=== PATIENT | female | born 1935 | race Caucasian/White ===

== ENCOUNTER 2016-05-09 10:50 | Outpatient (CLI) | payer MEDICARE, BC | END 2016-05-09 10:51 | disposition home or self-care (01) | DRG 554 | LOC: CONVCARE 10:50 | PROVIDERS: ATTEND Orthopaedic Surgery | DX: M17.11 Unilateral primary osteoarthritis, right knee (principal) | CPT/HCPCS: 73564 ==

== ENCOUNTER 2016-05-16 05:28 | Inpatient (IN) | payer MEDICARE, BC ==
[2016-05-16] MEDS ORDERED: LACTATED RINGERS 1,000 ML IV ONE (06:00)
[2016-05-16] MEDS ORDERED: LACTATED RINGERS 1,000 ML IV SCH (07:00)
[2016-05-16] MEDS ORDERED: CEFAZOLIN SODIUM 1 GM PDS ONE (07:16)
[2016-05-16] MEDS ORDERED: TRANEXAMIC ACID 100 MG/ML SOL ONE (07:17)
[2016-05-16] MEDS ORDERED: SODIUM CHLORIDE 20 ML 40 ML ONE (07:17)
[2016-05-16] MEDS ORDERED: MIDAZOLAM 2 MG/2 ML SOL ONE (07:24)
[2016-05-16] MEDS ORDERED: HYDROMORPHONE HCL 2 MG/ML 1 ML SOL ONE (07:24)
[2016-05-16] MEDS ORDERED: KETAMINE HYDROCHLORIDE 50 MG/ML SOL ONE (07:29)
[2016-05-16] MEDS: SCOPOLAMINE 1.5MG PATCH TD SCH (07:36)
[2016-05-16] MEDS ORDERED: PROPOFOL 500 MG/50 ML EMU IV ONE (08:04)
[2016-05-16] MEDS ORDERED: METOCLOPRAMIDE HYDROCHLORIDE 5 MG/ML SOL ONE (08:05)
[2016-05-16] MEDS ORDERED: DEXAMETHASONE 20 MG/5 ML (4 MG/ML SOL) ONE (08:05)
[2016-05-16] MEDS ORDERED: ONDANSETRON HCL 4 MG/2 ML SOL ONE (08:05)
[2016-05-16] MEDS ORDERED: SODIUM CHLORIDE IV ONE (08:12)
[2016-05-16] MEDS ORDERED: FLUSH IV ONE (08:12)
[2016-05-16] MEDS: BUPIVACAINE LIPOSOME 20 ML SUS ONE ×2 (09:06→09:30)
[2016-05-16] MEDS ORDERED: SODIUM CHLORIDE 0.9% FLUSH 10 ML SOL IV ONE ×2 (09:06→09:30)
[2016-05-16] MEDS ORDERED: ONDANSETRON 4 MG ODT BU PRN (09:42)
[2016-05-16] MEDS ORDERED: DIAZEPAM 5 MG TAB PO PRN (09:42)
[2016-05-16] MEDS ORDERED: FLEET ENEMA PR PRN (09:42)
[2016-05-16] MEDS ORDERED: TEMAZEPAM 15MG 15 MG CAP PO PRN (09:42)
[2016-05-16] MEDS ORDERED: ONDANSETRON HCL 4 MG/2 ML SOL IV PRN (09:42)
[2016-05-16] MEDS ORDERED: BISACODYL 10 MG SUP PR PRN (09:42)
[2016-05-16] MEDS ORDERED: HYDROMORPHONE HCL 2 MG/ML 1 ML SOL IV PRN (09:42)
[2016-05-16] MEDS ORDERED: MAGNESIUM HYDROXIDE 30 ML SUS PO PRN (09:42)
[2016-05-16] MEDS ORDERED: DIPHENHYDRAMINE 50 MG/ML SOL IV PRN (09:42)
[2016-05-16] MEDS ORDERED: MORPHINE SULFATE 10 MG/ML SOL IM PRN (09:42)
[2016-05-16] MEDS ORDERED: ALUMINUM/MAGNESIUM 30 ML SUS PO PRN (09:42)
[2016-05-16] MEDS ORDERED: SODIUM CHLORIDE 0.9% 500 ML 500 ML IV PRN (09:42)
[2016-05-16] MEDS ORDERED: SODIUM CHLORIDE 0.9% FLUSH 10 ML SOL IV SCH (09:45)
[2016-05-16] MEDS: SODIUM CHLORIDE 0.9% 1000ML 1,000 ML IV SCH ×2 (11:06→21:08)
[2016-05-16] MEDS ORDERED: NALOXONE HYDROCHLORIDE 0.4 MG/ML SOL IV PRN (11:30)
[2016-05-16] MEDS: NOVOLOG FLEXPEN SC SCH ×3 (12:07→21:06)
[2016-05-16] MEDS: APAP/HYDROCODONE 325/5 TAB PO PRN ×3 (14:05→23:58)
[2016-05-16] MEDS: SODIUM CHLORIDE 0.9% FLUSH 10 ML SOL IV SCH ×2 (15:18→21:05)
[2016-05-16] MEDS: CEFAZOLIN SODIUM 1 GM PDS 2 GM in SODIUM CHLORIDE 0.9% 100 ML 100 ML IV SCH (16:36)
[2016-05-16] MEDS: VALSARTAN PO SCH ×2 (16:37→21:04)
[2016-05-16] MEDS: HCTZ PO SCH ×2 (16:37→21:04)
[2016-05-16] MEDS ORDERED: NOVOLOG 70/30 FLEXPEN SC SCH (17:00)
[2016-05-16] MEDS: DOXAZOSIN 2 MG TAB PO SCH (21:04)
[2016-05-16] MEDS: ASPIRIN 81 MG CHEWABLE CTB PO SCH (21:04)
[2016-05-16] MEDS: ATENOLOL 25 MG TAB PO SCH (21:05)
[2016-05-16] MEDS: SENNOSIDES A AND B 8.6 MG TAB PO SCH (21:05)
[2016-05-17] MEDS: CEFAZOLIN SODIUM 1 GM PDS 2 GM in SODIUM CHLORIDE 0.9% 100 ML 100 ML IV SCH (00:04)
[2016-05-17] MEDS: SODIUM CHLORIDE 0.9% FLUSH 10 ML SOL IV SCH ×4 (04:39→20:11)
[2016-05-17] MEDS: APAP/HYDROCODONE 325/5 TAB PO PRN ×3 (06:58→20:12)
[2016-05-17] MEDS ORDERED: NOVOLOG 70/30 FLEXPEN SC SCH (07:00)
[2016-05-17 07:28] LABS: CALCIUM 8.4 mg/dl (8.5-10.1); POTASSIUM 3.9 mMol/L (3.5-5.1)
[2016-05-17 07:59] LABS: MEAN CORPUSCULAR HGB CONC 35.6 gm/dl (32.0-36.0)
[2016-05-17] MEDS: NOVOLOG FLEXPEN SC SCH ×4 (08:44→20:06)
[2016-05-17] MEDS: RIVAROXABAN 10 MG TAB PO SCH (08:44)
[2016-05-17] MEDS: AMLODIPINE 5 MG TAB PO SCH (09:38)
[2016-05-17] MEDS: NOVOLOG 70/30 FLEXPEN SC SCH (18:12)
[2016-05-17] MEDS: ASPIRIN 81 MG CHEWABLE CTB PO SCH (20:07)
[2016-05-17] MEDS: VALSARTAN PO SCH (20:09)
[2016-05-17] MEDS: HCTZ PO SCH (20:09)
[2016-05-17] MEDS: DOXAZOSIN 2 MG TAB PO SCH (20:10)
[2016-05-17] MEDS: ATENOLOL 25 MG TAB PO SCH (20:11)
[2016-05-17] MEDS: SENNOSIDES A AND B 8.6 MG TAB PO SCH (20:12)
[2016-05-18] MEDS: APAP/HYDROCODONE 325/5 TAB PO PRN ×3 (04:27→21:38)
[2016-05-18] MEDS: SODIUM CHLORIDE 0.9% FLUSH 10 ML SOL IV SCH ×2 (04:29→13:26)
[2016-05-18 07:22] LABS: MEAN CORPUSCULAR HGB CONC 34.9 gm/dl (32.0-36.0)
[2016-05-18 07:24] LABS: CALCIUM 8.9 mg/dl (8.5-10.1); POTASSIUM 3.5 mMol/L (3.5-5.1)
[2016-05-18] MEDS: NOVOLOG FLEXPEN SC SCH ×4 (08:56→21:44)
[2016-05-18] MEDS: NOVOLOG 70/30 FLEXPEN SC SCH ×2 (08:58→18:15)
[2016-05-18] MEDS: AMLODIPINE 5 MG TAB PO SCH (09:01)
[2016-05-18] MEDS: RIVAROXABAN 10 MG TAB PO SCH (09:01)
[2016-05-18] MEDS: ATENOLOL 25 MG TAB PO SCH (21:38)
[2016-05-18] MEDS: SENNOSIDES A AND B 8.6 MG TAB PO SCH (21:39)
[2016-05-18] MEDS: DOXAZOSIN 2 MG TAB PO SCH (21:41)
[2016-05-18] MEDS: HCTZ PO SCH (21:42)
[2016-05-18] MEDS: ASPIRIN 81 MG CHEWABLE CTB PO SCH (21:42)
[2016-05-18] MEDS: VALSARTAN PO SCH (21:42)
[2016-05-19] MEDS: APAP/HYDROCODONE 325/5 TAB PO PRN ×2 (05:09→17:13)
[2016-05-19] MEDS: SCOPOLAMINE 1.5MG PATCH TD SCH (06:06)
[2016-05-19 07:18] LABS: MEAN CORPUSCULAR HGB CONC 35.7 gm/dl (32.0-36.0)
[2016-05-19] MEDS: RIVAROXABAN 10 MG TAB PO SCH (08:00)
[2016-05-19] MEDS: AMLODIPINE 5 MG TAB PO SCH (08:01)
[2016-05-19] MEDS: NOVOLOG FLEXPEN SC SCH ×4 (08:03→20:23)
[2016-05-19] MEDS: NOVOLOG 70/30 FLEXPEN SC SCH ×2 (09:30→18:19)
[2016-05-19] MEDS: SENNOSIDES A AND B 8.6 MG TAB PO SCH (20:24)
[2016-05-19] MEDS: ASPIRIN 81 MG CHEWABLE CTB PO SCH (20:25)
[2016-05-19] MEDS: HCTZ PO SCH (20:25)
[2016-05-19] MEDS: ATENOLOL 25 MG TAB PO SCH (20:25)
[2016-05-19] MEDS: VALSARTAN PO SCH (20:25)
[2016-05-19] MEDS: DOXAZOSIN 2 MG TAB PO SCH (20:25)
[2016-05-20] MEDS: APAP/HYDROCODONE 325/5 TAB PO PRN ×3 (01:18→14:50)
[2016-05-20 07:00] LABS: BASOPHILS % (AUTO) 1 % (0-3); EOSINOPHILS % (AUTO) 5 % (0-9); HEMATOCRIT 26 % (35-47); MEAN CORPUSCULAR HGB CONC 35.4 gm/dl (32.0-36.0); MONOCYTES % (AUTO) 8.7 % (0-12); NEUTROPHILS % (AUTO) 72.1 % (37-80)
[2016-05-20] MEDS: NOVOLOG FLEXPEN SC SCH (07:19)
[2016-05-20] MEDS: RIVAROXABAN 10 MG TAB PO SCH (09:18)
[2016-05-20] MEDS: NOVOLOG 70/30 FLEXPEN SC SCH ×2 (09:19→18:25)
[2016-05-20] MEDS: AMLODIPINE 5 MG TAB PO SCH (09:54)
[2016-05-20 17:10] VITALS: RESP 16
[2016-05-20] MEDS: ASPIRIN 81 MG CHEWABLE CTB PO SCH (21:45)
[2016-05-20] MEDS: DOXAZOSIN 2 MG TAB PO SCH (21:45)
[2016-05-20] MEDS: SENNOSIDES A AND B 8.6 MG TAB PO SCH (21:46)
[2016-05-20] MEDS: VALSARTAN PO SCH (21:46)
[2016-05-20] MEDS: HCTZ PO SCH (21:46)
[2016-05-20] MEDS: ATENOLOL 25 MG TAB PO SCH (21:46)
[2016-05-21] MEDS: APAP/HYDROCODONE 325/5 TAB PO PRN ×3 (00:23→13:12)
[2016-05-21] MEDS: NOVOLOG 70/30 FLEXPEN SC SCH (09:39)
[2016-05-21] MEDS: RIVAROXABAN 10 MG TAB PO SCH (09:42)
[2016-05-21] MEDS: AMLODIPINE 5 MG TAB PO SCH (09:42)
[2016-05-21 13:52] VITALS: BP 128/68; PULSE 68; TEMP 98; O2SAT 93
== END 2016-05-21 13:50 | disposition home or self-care (01) | DRG 470 ==
LOC: ACUTE CARE 05:28
PROVIDERS: ADMIT Orthopaedic Surgery; ATTEND Family Medicine
PROC: F01ZDFZ Gait and/or Balance Assessment using Assistive, Adaptive, Supportive or Protective Equipment (ICD-10-PCS; 2016-05-16)
PROC: F01ZCZZ Transfer Assessment (ICD-10-PCS; 2016-05-16)
PROC: F02Z1ZZ Dressing Assessment (ICD-10-PCS; 2016-05-16)
PROC: F07Z9FZ Gait Training/Functional Ambulation Treatment using Assistive, Adaptive, Supportive or Protective Equipment (ICD-10-PCS; 2016-05-16)
PROC: F08Z1ZZ Dressing Techniques Treatment (ICD-10-PCS; 2016-05-16)
PROC: 0SRC0J9 Replacement of Right Knee Joint with Synthetic Substitute, Cemented, Open Approach (ICD-10-PCS; principal; 2016-05-16 08:00)
DX: M17.11 Unilateral primary osteoarthritis, right knee (principal); E11.9 Type 2 diabetes mellitus without complications; I10 Essential (primary) hypertension; Z96.651 Presence of right artificial knee joint; Z79.4 Long term (current) use of insulin
CPT/HCPCS: 36415; 73560; 80048; 82962; 85025; 85027; 94150; 99070; J0690; J1100; J1170; J1815; J2250; J2310; J2405; J2765; A6232; A6402

== ENCOUNTER 2016-06-27 10:59 | Outpatient (CLI) | payer MEDICARE, BC ==
[2016-05-21 13:52] VITALS: O2SAT 93
== END 2016-06-27 11:00 | disposition home or self-care (01) | DRG 561 ==
LOC: CONVCARE 10:59
PROVIDERS: ATTEND Orthopaedic Surgery
DX: Z47.1 Aftercare following joint replacement surgery (principal); Z96.651 Presence of right artificial knee joint
CPT/HCPCS: 73562